=== PATIENT | male | born 1945 | race Caucasian/White ===

== ENCOUNTER 2024-01-15 11:01 | Emergency (ER) | payer OTHER ==
[2024-01-15 12:19] LABS: CORONAVIRUS 229E-RESP PCR NOT DETECTED; CORONAVIRUS HKU1-RESP PCR NOT DETECTED; CORONAVIRUS NL63-RESP PCR NOT DETECTED; CORONAVIRUS OC43-RESP PCR NOT DETECTED; HUMAN METAPNEUMOVIRUS NOT DETECTED; INFLUENZA A H3- RESP PCR PANEL DETECTED; INFLUENZA B - RESP PCR PANEL NOT DETECTED; PARAINFLUENZA VIRUS 1 NOT DETECTED; PARAINFLUENZA VIRUS 2 NOT DETECTED; RHINOVIRUS/ENTEROVIRUS NOT DETECTED; SARS-CoV-2 -RESP PCR PANEL NOT DETECTED
[2024-01-15 12:20] LABS: B. PARAPERTUSSIS- RESP PCR PAN NOT DETECTED; B. PERTUSSIS- RESP PCR PANEL NOT DETECTED; C. PNEUMONIAE- RESP PCR PANEL NOT DETECTED; M. PNEUMONIAE- RESP PCR PANEL NOT DETECTED; PARAINFLUENZA VIRUS 3 NOT DETECTED; PARAINFLUENZA VIRUS 4 NOT DETECTED; RSV- RESP PCR PANEL NOT DETECTED
--- NOTE | 2024-01-15 12:25 | ED Physician Documentation ---
PD HPI URI - Stated complaint Stated Complaint: COUGH,CONGESTION - Chief complaint Chief Complaint: Resp - Additional information Additional information: 78-year-old male with no pertinent past medical history presents emergency department for 12 hours of feeling generalized malaise, fevers chills, cough. He denies any chest pain and no shortness of breath. Patient denies any known cardiac history. PD PAST MEDICAL HISTORY - Past Medical History Past Medical History: No Other Past Medical History: seasonal allergies - Past Surgical History Past Surgical History: No - Present Medications Home Medications: Ambulatory Orders Medication Instructions Recorded Confirmed Oseltamivir [Tamiflu] 75 mg PO BID 5 Days #9 cap 01/15/24 - Allergies Allergies/Adverse Reactions: Allergies Allergy/AdvReac Type Severity Reaction Status Date / Time No Known Drug Allergies Allergy Verified 01/15/24 11:18 - Social History Does the pt smoke?: No Smoking Status: Never smoker Does the pt drink ETOH?: Yes Does the pt have substance abuse?: No - Immunizations Immunizations are current?: Yes PD ED PE NORMAL - Vitals Vital signs reviewed: Yes - General General: Alert and oriented X 3, No acute distress, Well developed/nourished - HEENT HEENT: Atraumatic, PERRL - Cardiac Cardiac: RRR, No murmur, No gallop - Respiratory Respiratory: No respiratory distress, Clear bilaterally - Abdomen Abdomen: Normal bowel sounds, Soft, Non tender Results - Vitals Vitals: Vital Signs - 24 hr 01/15/24 01/15/24 11:15 12:34 Temperature 37 C 37.4 C Heart Rate 89 83 Respiratory 18 18 Rate Blood Pressure 171/81 H 135/88 H O2 Saturation 98 100 - Labs Labs: Laboratory Tests 01/15/24 11:21 Nasal Adenovirus (PCR) NOT DETECTED Nasal B. parapertussis DNA (PCR) NOT DETECTED Nasal Coronavir 229E PCR NOT DETECTED Nasal Coronavir HKU1 PCR NOT DETECTED Nasal Coronavir NL63 PCR NOT DETECTED Nasal Coronavir OC43 PCR NOT DETECTED Nasal Enterovir/Rhinovir PCR NOT DETECTED Nasal Influenza A H3 PCR DETECTED A Nasal Influenza B PCR NOT DETECTED Nasal Parainfluen 1 PCR NOT DETECTED Nasal Parainfluen 2 PCR NOT DETECTED Nasal Parainfluen 3 PCR NOT DETECTED Nasal Parainfluen 4 PCR NOT DETECTED Nasal RSV (PCR) NOT DETECTED Nasal B.pertussis DNA PCR NOT DETECTED Nasal C.pneumoniae (PCR) NOT DETECTED Miguelangel Human Metapneumo PCR NOT DETECTED Nasal M.pneumoniae (PCR) NOT DETECTED Nasal SARS-CoV-2 (PCR) NOT DETECTED PD Medical Decision Making - ED course ED course: Patient presents emergency department for flulike symptoms respiratory swab was complete and patient tested positive for influenza A. He was started on Tamiflu here in the emergency department and Tamiflu prescription was sent to his preferred pharmacy. He was taught how to manage his symptoms at home all questions answered return precautions given patient safe for discharge. Departure - Departure Disposition: Home, Self Care Clinical Impression: Influenza A Instructions: ED Flu, Medication: Tamiflu (Oseltamivir) Prescriptions: Oseltamivir [Tamiflu] 75 mg PO BID 5 Days #9 cap Comments: Thank you for trusting us with your care. We have found that you have influenza A. I have started you on Tamiflu here in the emergency department which is an antiviral medication that can sometimes help people recover from influenza A. You have taken the first dose here in the ER you will take the second dose late this evening and then thereafter twice a day for the next 4 days. Please come back to the ER if you are having fevers over 101 F that is lasting longer than 5 days, shortness of breath, chest pain, or any other worsening concerning symptoms. Wishing you a speedy recovery. Forms: PCP List Discharge Date/Time: 01/15/24 12:35
[2024-01-15] MEDS: OSELTAMIVIR 75 MG CAPSULE PO STA (12:28)
[2024-01-15] MEDS: ONDANSETRON ODT 4 MG TABLET TL STA (12:28)
[2024-01-15 12:54] VITALS: BP 135/88; O2SAT 100
== END 2024-01-15 12:35 | disposition home or self-care (01) ==
LOC: ED 11:01
DX: J10.1 Influenza due to other identified influenza virus with other respiratory manifestations (principal); Z20.818 Contact with and (suspected) exposure to other bacterial communicable diseases; Z20.822 Contact with and (suspected) exposure to COVID-19; Z20.828 Contact with and (suspected) exposure to other viral communicable diseases
CPT/HCPCS: 87633; 99282; 99283; A9270; Q0162